=== PATIENT | female | born 1990 | race African-American/Black ===

== ENCOUNTER 2017-04-19 00:46 | Emergency (ER) | payer MEDICAID ==
[~2017-04-19] VITALS: Ht 165.1 cm; Wt 52.0 kg
[2017-04-19 05:55] VITALS: BP 112/73
== END 2017-04-19 08:44 | disposition home or self-care (01) ==
LOC: ER 00:47
DX: L02.416 Cutaneous abscess of left lower limb (principal); L03.116 Cellulitis of left lower limb; J45.909 Unspecified asthma, uncomplicated
CPT/HCPCS: 99283